=== PATIENT | female | born 1965 | race Caucasian/White ===

== ENCOUNTER 2017-07-09 13:56 | Emergency (ER) | payer BC ==
--- NOTE | 2017-07-09 14:30 | EDM.PDOC ---
ED HPI GENERAL MEDICAL PROBLEM - General Chief Complaint: Neuro Symptoms/Deficits Stated Complaint: PT SEEMS CONFUSE Time Seen by Provider: 07/09/17 14:00 Source of Information: Reports: Patient History Limitations: Reports: No Limitations - History of Present Illness INITIAL COMMENTS - FREE TEXT/NARRATIVE: HISTORY AND PHYSICAL: Stroke Code was called upon patient arrival, Dr Vail was involved in this case. History of present illness: Patient is a 51-year-old female who presents to the emergency room with complaints of confusion. Patient was brought to the emergency room by her roommate. Over the weekend the patient had flulike symptoms and had not "felt well" and had been taking some [id number] medications. The roommate that is here with her now, states that this morning she was attempting to get dressed and was not making sense as to where she was going. Roommate decided to bring her to the ER. Upon arrival the patient is ambulatory and alert but is disoriented to time. She able to perform tasks and follow commands. Ambulatory without difficulty or deficits. I'll trying to have a conversation with the patient she makes nonsensical statements and does not answer questions appropriately. Denies any recent injury, trauma, or head injuries. Currently she states she has a mild headache but otherwise says "feel off". Review of systems: As per history of present illness and below otherwise all systems reviewed and negative. Past medical history: As per history of present illness and as reviewed below otherwise noncontributory. Surgical history: As per history of present illness and as reviewed below otherwise noncontributory. Social history: No reported history of drug or alcohol abuse. Family history: As per history of present illness and as reviewed below otherwise noncontributory. Physical exam: General: Well-developed and well-nourished 51-year-old female. Nontoxic appearing. Alert but disoriented. See NIH scale. HEENT: Atraumatic, normocephalic, pupils reactive, negative for conjunctival pallor or scleral icterus, mucous membranes moist, throat clear, neck supple, nontender, trachea midline. Lungs: Clear to auscultation, breath sounds equal bilaterally, chest nontender. Heart: S1S2, regular rate and rhythm Abdomen: Soft, nondistended, nontender. Negative for masses or hepatosplenomegaly. Negative for costovertebral tenderness. Pelvis: Stable nontender. Genitourinary: Deferred. Rectal: Deferred. Extremities: Atraumatic, negative for cords or calf pain. Neurovascular unremarkable. Neuro: Awake, alert, oriented. Cranial nerves II through XII unremarkable. Cerebellum unremarkable. Motor and sensory unremarkable throughout. Exam nonfocal. CT results were called to me at 1432: No acute findings. NIH = 3 (1 pt for age, 2 points for language - unable to describe pictures/nonsensical statements). Urine shows slight UTI, will treat with 1gm Rocephin - urine culture added. Dr. Vail did also assess this patient. Patient's NIH remains at a 3. Due to the patient's altered mental status with expressive aphasia will transfer this patient to a higher level of care. Dr Silver from [facility] in [place] has agreed to accept this patient. Will transfer via EMS. 1525 - we were able to get a hold of the who gave us a little more of her health information. Patient does have a history of a seizure disorder and does take Tegretol. Sees a neurologist in [facility]. Although the roommate does not know of her taking any medications. Lab called with a Troponin of 0.68 (EKG was reviewed by myself and Dr Vail with no acute findings). Repeat EKG done with no new changes. Temperature has gone from 98.4 to 100.8F. Will give Acyclovir IV to cover bases for Herpes Encephalitis. Information shared with Dr Silver. Diagnostics: CBC, CMP, troponin, EKG, 1 view chest x-ray, PT/INR, head CT, lactic acid, blood culture x2, urine culture Therapeutics: Neuro checks, ASA, Normal Saline Impression: Altered Mental Status UTI Plan: Transfer to [place] via ground EMS per Dr Silver Definitive disposition and diagnosis as appropriate pending reevaluation and review of above. - Related Data Allergies Allergy/AdvReac Type Severity Reaction Status Date / Time erythromycin base Allergy Cannot Verified 07/09/17 15:36 Remember Home Meds: Home Meds carBAMazepine [Tegretol] 0 mg PO BID 07/09/17 [History] Past Medical History - Past Health History Medical/Surgical History: Denies Medical/Surgical History Social & Family History - Tobacco Use Smoking Status *Q: Never Smoker Second Hand Smoke Exposure: No - Caffeine Use Caffeine Use: Reports: None - Recreational Drug Use Recreational Drug Use: No ED ROS GENERAL - Review of Systems Review Of Systems: ROS reveals no pertinent complaints other than HPI. ED EXAM, NEURO - Physical Exam Exam: See Below (See dictation) Course - Vital Signs Last Recorded V/S: Last Vital Signs Temp 98.4 F 07/09/17 14:13 Pulse 104 H 07/09/17 15:41 Resp 18 07/09/17 15:41 BP 107/71 07/09/17 15:41 Pulse Ox 96 07/09/17 15:41 - Orders/Labs/Meds Orders: Active Orders 24 hr Category Date Time Status EKG 12 Lead [EKG Documentation Completion] [RC] STAT Care 07/09/17 14:09 Active EKG Documentation Completion [RC] STAT Care 07/09/17 15:30 Active CULTURE BLOOD [BC] Stat Lab 07/09/17 15:18 Received CULTURE BLOOD [] Stat Lab 07/09/17 15:24 Received CULTURE URINE [] Stat Lab 07/09/17 14:10 Received INFLUENZA A+B AG SCREEN [RM] Stat Lab 07/09/17 14:22 Ordered Sodium Chloride 0.9% [Normal Saline] 500 ml Med 07/09/17 15:00 Active IV STAT Blood Culture x2 Reflex Set [OM.PC] Stat Oth 07/09/17 15:04 Ordered Medication Orders Sodium Chloride (Normal Saline) 500 mls @ 999 mls/hr IV STAT MAKENZIE Last Admin: 07/09/17 15:37 Dose: 999 mls/hr Labs: Laboratory Tests 07/09/17 07/09/17 07/09/17 Range/Units 14:10 14:10 14:10 WBC (4.0-11.0) K/uL RBC (4.30-5.90) M/uL Hgb (12.0-16.0) g/dL Hct (36.0-46.0) % MCV (80.0-98.0) fL MCH (27.0-32.0) pg MCHC (31.0-37.0) g/dL RDW Std Deviation (28.0-62.0) fl RDW Coeff of Donnie (11.0-15.0) % Plt Count (150-400) K/uL MPV (7.40-12.00) fL Neut % (Auto) (48.0-80.0) % Lymph % (Auto) (16.0-40.0) % Burke % (Auto) (0.0-15.0) % Eos % (Auto) (0.0-7.0) % Baso % (Auto) (0.0-1.5) % Neut # (Auto) (1.4-5.7) K/uL Lymph # (Auto) (0.6-2.4) K/uL Burke # (Auto) (0.0-0.8) K/uL Eos # (Auto) (0.0-0.7) K/uL Baso # (Auto) (0.0-0.1) K/uL Nucleated RBC % /100WBC Nucleated RBCs # K/uL INR Lactate (0.20-2.00) mmol/L Sodium (136-146) mmol/L Potassium (3.5-5.1) mmol/L Chloride (98-110) mmol/L Carbon Dioxide (21-31) mmol/L BUN (6.0-23.0) mg/dL Creatinine (0.6-1.5) mg/dL Est Cr Clr Drug Dosing Estimated GFR (MDRD) ml/min Glucose (60-110) mg/dL POC Glucose 109 (60-110) mg/dL Calcium (8.8-10.8) mg/dL Total Bilirubin (0.1-1.5) mg/dL AST (5-40) IU/L ALT (8-54) IU/L Alkaline Phosphatase (40-150) Troponin I (0.0-0.29) NG/ML Total Protein (6.0-8.0) g/dL Albumin (3.5-5.0) g/dL Globulin (2.0-3.5) g/dL Albumin/Globulin Ratio (1.3-2.8) Urine Color YELLOW Urine Appearance CLOUDY Urine pH 6.0 (5.0-8.0) Ur Specific Archer >= 1.030 (1.001-1.035) Urine Protein 30 (NEGATIVE) mg/dL Urine Glucose (UA) NEGATIVE (NEGATIVE) mg/dL Urine Ketones NEGATIVE (NEGATIVE) mg/dL Urine Occult Blood SMALL H (NEGATIVE) Urine Nitrite POSITIVE H (NEGATIVE) Urine Bilirubin SMALL H (NEGATIVE) Urine Ictotest NEGATIVE Urine Urobilinogen 1.0 (<2.0) EU/dL Ur Leukocyte Esterase NEGATIVE (NEGATIVE) Urine RBC 0-1 (0-2/HPF) Urine WBC 0-1 (0-5/HPF) Ur Epithelial Cells FEW (NONE-FEW) Amorphous Sediment HEAVY (NEGATIVE) Urine Bacteria 2+ H (NEGATIVE) Urine Opiates Screen NEGATIVE (NEGATIVE) Ur Oxycodone Screen NEGATIVE (NEGATIVE) Urine Methadone Screen NEGATIVE (NEGATIVE) Ur Barbiturates Screen POSITIVE (NEGATIVE) Ur Phencyclidine Scrn NEGATIVE (NEGATIVE) Ur Amphetamine Screen NEGATIVE (NEGATIVE) U Methamphetamines Scrn NEGATIVE (NEGATIVE) U Benzodiazepines Scrn NEGATIVE (NEGATIVE) U Cocaine Metab Screen NEGATIVE (NEGATIVE) U Marijuana (THC) Screen NEGATIVE (NEGATIVE) 07/09/17 07/09/17 07/09/17 Range/Units 14:33 14:33 14:33 WBC 9.82 (4.0-11.0) K/uL RBC 4.92 (4.30-5.90) M/uL Hgb 16.1 H (12.0-16.0) g/dL Hct 45.7 (36.0-46.0) % MCV 92.9 (80.0-98.0) fL MCH 32.7 H (27.0-32.0) pg MCHC 35.2 (31.0-37.0) g/dL RDW Std Deviation 46.4 (28.0-62.0) fl RDW Coeff of Donnie 14 (11.0-15.0) % Plt Count 82 L (150-400) K/uL MPV 9.50 (7.40-12.00) fL Neut % (Auto) 88.1 H (48.0-80.0) % Lymph % (Auto) 5.3 L (16.0-40.0) % Burke % (Auto) 6.5 (0.0-15.0) % Eos % (Auto) 0.0 (0.0-7.0) % Baso % (Auto) 0.1 (0.0-1.5) % Neut # (Auto) 8.7 H (1.4-5.7) K/uL Lymph # (Auto) 0.5 L (0.6-2.4) K/uL Burke # (Auto) 0.6 (0.0-0.8) K/uL Eos # (Auto) 0.0 (0.0-0.7) K/uL Baso # (Auto) 0.0 (0.0-0.1) K/uL Nucleated RBC % 0.0 /100WBC Nucleated RBCs # 0 K/uL INR 1.07 Lactate (0.20-2.00) mmol/L Sodium 137 (136-146) mmol/L Potassium 3.6 (3.5-5.1) mmol/L Chloride 107 (98-110) mmol/L Carbon Dioxide 21 (21-31) mmol/L BUN 8 (6.0-23.0) mg/dL Creatinine 0.9 (0.6-1.5) mg/dL Est Cr Clr Drug Dosing TNP Estimated GFR (MDRD) > 60.0 ml/min Glucose 124 H (60-110) mg/dL POC Glucose (60-110) mg/dL Calcium 8.8 (8.8-10.8) mg/dL Total Bilirubin 0.4 (0.1-1.5) mg/dL AST 33 (5-40) IU/L ALT 24 (8-54) IU/L Alkaline Phosphatase 88 (40-150) Troponin I (0.0-0.29) NG/ML Total Protein 7.0 (6.0-8.0) g/dL Albumin 4.3 (3.5-5.0) g/dL Globulin 2.7 (2.0-3.5) g/dL Albumin/Globulin Ratio 1.6 (1.3-2.8) Urine Color Urine Appearance Urine pH (5.0-8.0) Ur Specific Archer (1.001-1.035) Urine Protein (NEGATIVE) mg/dL Urine Glucose (UA) (NEGATIVE) mg/dL Urine Ketones (NEGATIVE) mg/dL Urine Occult Blood (NEGATIVE) Urine Nitrite (NEGATIVE) Urine Bilirubin (NEGATIVE) Urine Ictotest Urine Urobilinogen (<2.0) EU/dL Ur Leukocyte Esterase (NEGATIVE) Urine RBC (0-2/HPF) Urine WBC (0-5/HPF) Ur Epithelial Cells (NONE-FEW) Amorphous Sediment (NEGATIVE) Urine Bacteria (NEGATIVE) Urine Opiates Screen (NEGATIVE) Ur Oxycodone Screen (NEGATIVE) Urine Methadone Screen (NEGATIVE) Ur Barbiturates Screen (NEGATIVE) Ur Phencyclidine Scrn (NEGATIVE) Ur Amphetamine Screen (NEGATIVE) U Methamphetamines Scrn (NEGATIVE) U Benzodiazepines Scrn (NEGATIVE) U Cocaine Metab Screen (NEGATIVE) U Marijuana (THC) Screen (NEGATIVE) 07/09/17 07/09/17 Range/Units 14:33 15:18 WBC (4.0-11.0) K/uL RBC (4.30-5.90) M/uL Hgb (12.0-16.0) g/dL Hct (36.0-46.0) % MCV (80.0-98.0) fL MCH (27.0-32.0) pg MCHC (31.0-37.0) g/dL RDW Std Deviation (28.0-62.0) fl RDW Coeff of Donnie (11.0-15.0) % Plt Count (150-400) K/uL MPV (7.40-12.00) fL Neut % (Auto) (48.0-80.0) % Lymph % (Auto) (16.0-40.0) % Burke % (Auto) (0.0-15.0) % Eos % (Auto) (0.0-7.0) % Baso % (Auto) (0.0-1.5) % Neut # (Auto) (1.4-5.7) K/uL Lymph # (Auto) (0.6-2.4) K/uL Burke # (Auto) (0.0-0.8) K/uL Eos # (Auto) (0.0-0.7) K/uL Baso # (Auto) (0.0-0.1) K/uL Nucleated RBC % /100WBC Nucleated RBCs # K/uL INR Lactate 1.2 (0.20-2.00) mmol/L Sodium (136-146) mmol/L Potassium (3.5-5.1) mmol/L Chloride (98-110) mmol/L Carbon Dioxide (21-31) mmol/L BUN (6.0-23.0) mg/dL Creatinine (0.6-1.5) mg/dL Est Cr Clr Drug Dosing Estimated GFR (MDRD) ml/min Glucose (60-110) mg/dL POC Glucose (60-110) mg/dL Calcium (8.8-10.8) mg/dL Total Bilirubin (0.1-1.5) mg/dL AST (5-40) IU/L ALT (8-54) IU/L Alkaline Phosphatase (40-150) Troponin I 0.68 H* (0.0-0.29) NG/ML Total Protein (6.0-8.0) g/dL Albumin (3.5-5.0) g/dL Globulin (2.0-3.5) g/dL Albumin/Globulin Ratio (1.3-2.8) Urine Color Urine Appearance Urine pH (5.0-8.0) Ur Specific Archer (1.001-1.035) Urine Protein (NEGATIVE) mg/dL Urine Glucose (UA) (NEGATIVE) mg/dL Urine Ketones (NEGATIVE) mg/dL Urine Occult Blood (NEGATIVE) Urine Nitrite (NEGATIVE) Urine Bilirubin (NEGATIVE) Urine Ictotest Urine Urobilinogen (<2.0) EU/dL Ur Leukocyte Esterase (NEGATIVE) Urine RBC (0-2/HPF) Urine WBC (0-5/HPF) Ur Epithelial Cells (NONE-FEW) Amorphous Sediment (NEGATIVE) Urine Bacteria (NEGATIVE) Urine Opiates Screen (NEGATIVE) Ur Oxycodone Screen (NEGATIVE) Urine Methadone Screen (NEGATIVE) Ur Barbiturates Screen (NEGATIVE) Ur Phencyclidine Scrn (NEGATIVE) Ur Amphetamine Screen (NEGATIVE) U Methamphetamines Scrn (NEGATIVE) U Benzodiazepines Scrn (NEGATIVE) U Cocaine Metab Screen (NEGATIVE) U Marijuana (THC) Screen (NEGATIVE) Meds: Medications Generic Name Dose Route Start Last Admin Trade Name Freq PRN Reason Stop Dose Admin Sodium Chloride 500 mls @ 999 mls/hr 07/09/17 15:00 07/09/17 15:37 Normal Saline IV 999 mls/hr STAT MAKENZIE Administration Discontinued Medications Generic Name Dose Route Start Last Admin Trade Name Freq PRN Reason Stop Dose Admin Acyclovir 750 mg 07/09/17 15:53 Zovirax IV 07/09/17 15:54 NOW STA Aspirin 324 mg 07/09/17 15:26 07/09/17 15:40 Aspirin PO 07/09/17 15:27 324 mg ONETIME ONE Administration Ceftriaxone Sodium/Dextrose 1 50 mls @ 100 mls/hr 07/09/17 15:12 07/09/17 15: 36 gm/ Premix IV 07/09/17 15:41 100 mls/hr ONETIME ONE Administration Departure - Departure Time of Disposition: 16:03 Disposition: DC/Tfer to Other 70 Clinical Impression: Altered mental status Qualifiers: Altered mental status type: unspecified Qualified Code(s): R41.82 - Altered mental status, unspecified UTI (urinary tract infection) Qualifiers: Urinary tract infection type: site unspecified Hematuria presence: with hematuria Qualified Code(s): N39.0 - Urinary tract infection, site not specified ; R31.9 - Hematuria, unspecified; R31.9 - Hematuria, unspecified - Discharge Information Referrals: PCP,None [Primary Care Provider] - Forms: ED Department Discharge - My Orders Last 24 Hours: My Active Orders 07/09/17 14:09 EKG 12 Lead [EKG Documentation Completion] [RC] STAT 07/09/17 14:10 CULTURE URINE [RM] Stat 07/09/17 14:22 INFLUENZA A+B AG SCREEN [RM] Stat 07/09/17 15:00 Sodium Chloride 0.9% [Normal Saline] 500 ml IV STAT 07/09/17 15:04 Blood Culture x2 Reflex Set [OM.PC] Stat 07/09/17 15:18 CULTURE BLOOD [BC] Stat 07/09/17 15:24 CULTURE BLOOD [BC] Stat 07/09/17 15:30 EKG Documentation Completion [RC] STAT - Assessment/Plan Last 24 Hours: My Active Orders 07/09/17 14:09 EKG 12 Lead [EKG Documentation Completion] [RC] STAT 07/09/17 14:10 CULTURE URINE [RM] Stat 07/09/17 14:22 INFLUENZA A+B AG SCREEN [RM] Stat 07/09/17 15:00 Sodium Chloride 0.9% [Normal Saline] 500 ml IV STAT 07/09/17 15:04 Blood Culture x2 Reflex Set [OM.PC] Stat 07/09/17 15:18 CULTURE BLOOD [BC] Stat 07/09/17 15:24 CULTURE BLOOD [BC] Stat 07/09/17 15:30 EKG Documentation Completion [RC] STAT
--- NOTE | 2017-07-09 14:35 | CT ---
EXAMINATION: Non contrast CT head. Coronal and sagittal reformats. HISTORY: Confusion FINDINGS: No evidence of intra or extra axial hemorrhage, mass, midline shift, hydrocephalus or edema. No hypoattenuation changes in the major vascular territories to suggest acute infarct. No abnormal intracranial calcifications are detected. No evidence of substantial vascular calcificat ions. Mild mucosal thickening noted within the maxillary sinuses and ethmoid air cells. Mastoid air cells a nd middle ears are clear. Orbits and globes are symmetric. Pituitary fossa appears unremarkable. Calvarium is intact. No evidence of skull fracture. IMPRESSION: No acute intracranial findings. Findings were called to the ER at 2:32 PM.
[2017-07-09] MEDS ORDERED: Sodium Chloride 0.9% 500 ML IV SCH (15:00)
[2017-07-09 15:12] LABS: CHLORIDE,CL 107 mmol/L (98-110); SODIUM,NA 137 mmol/L (136-146)
[2017-07-09] MEDS ORDERED: cefTRIAXone 1 GM in Premix Bag 1 BAG IV ONE (15:12)
--- NOTE | 2017-07-09 15:17 | CR ---
EXAMINATION: Portable chest radiograph. HISTORY: Shortness of breath. FINDINGS: The trachea is midline. The cardiomediastinal silhouette is within normal limits. No pulmonary infilt rates, effusions or pneumothorax. Osseous structures appear unremarkable. IMPRESSION: No acute cardiopulmonary process.
[2017-07-09] MEDS ORDERED: Aspirin 81 MG Tab.Chew PO ONE (15:26)
[2017-07-09] MEDS ORDERED: ACYCLOVIR IV ONE (16:30)
[2017-07-09] MEDS ORDERED: SODIUM CHLORIDE 0.9% IV ONE (16:30)
[2017-07-09] MEDS: Acyclovir 500 MG/10 ML SDV IV STA ×2 (16:30→16:51)
== END 2017-07-09 16:45 | disposition other institution (70) ==
LOC: MW.ED 13:56
DX: R41.82 Altered mental status, unspecified (principal); N39.0 Urinary tract infection, site not specified; R31.9 Hematuria, unspecified; G40.909 Epilepsy, unspecified, not intractable, without status epilepticus; Z88.1 Allergy status to other antibiotic agents
CPT/HCPCS: 36415; 70450; 71045; 80053; 80305; 81001; 82962; 83605; 84484; 85025; 85610; 87040; 87086; 87804; 93005; 96365; 96375; 99285; A9270; J0133; J0696; J7040

== ENCOUNTER 2021-12-01 18:10 | Observation (INO) | payer BC ==
[~2021-12-01 18:10] MED LIST: Sodium Chloride 0.9% 1,000 ML IV ONE
[2021-12-01] MEDS ORDERED: LORazepam 2 MG/ML SDV IVPUSH ONE ×2 (18:11→18:12)
[2021-12-01] MEDS ORDERED: LORazepam 2 MG/ML SDV ONE (18:13)
[2021-12-01 19:05] LABS: BLOOD UREA NITROGEN,BUN 14 mg/dL (7.0-18.0); CARBON DIOXIDE,CO2 18.5 mmol/L (21.0-32.0); CHLORIDE,CL 104 mmol/L (98-107); ESTIMATED GFR 66 mL/min (>60); GLUCOSE RANDOM 140 mg/dL (74-106); POTASSIUM,K 3.8 mmol/L (3.5-5.1); SODIUM,NA 138 mmol/L (136-145)
[2021-12-01] MEDS ORDERED: Albuterol/Ipratropium 3.0-0.5 MG/3 ML Neb Soln NEB PRN (21:56)
[2021-12-01] MEDS ORDERED: Acetaminophen 325 MG Tab PO PRN (21:56)
[2021-12-01] MEDS ORDERED: Lactated Ringers 1,000 ML IV ONE (21:56)
[2021-12-01] MEDS ORDERED: Ondansetron 4 MG/2 ML SDV IVPUSH PRN (21:56)
[2021-12-01] MEDS ORDERED: Pantoprazole 40 MG in Sodium Chloride 0.9% 10 ML IVPUSH SCH (22:00)
[2021-12-01] MEDS ORDERED: Lactated Ringers 1,000 ML IV SCH (22:00)
[2021-12-01] MEDS ORDERED: LORazepam 2 MG/ML Syringe IVPUSH PRN (22:05)
[2021-12-02] MEDS ORDERED: Topiramate 100 MG Tab PO SCH (09:00)
[2021-12-02] MEDS ORDERED: Phenytoin 100 MG Cap.ER PO SCH (09:00)
[2021-12-02] MEDS ORDERED: Nitrofurantoin Monohydrate/Macrocrystalline 100 MG Cap PO SCH (10:45)
== END 2021-12-02 16:30 | disposition home or self-care (01) ==
LOC: MW.ED 18:10 → MW.MS 21:14
PROVIDERS: ADMIT Student in an Organized Health Care Education/Training Program; ATTEND Student in an Organized Health Care Education/Training Program
DX: R56.9 Unspecified convulsions (principal); R41.82 Altered mental status, unspecified; Z88.8 Allergy status to other drugs, medicaments and biological substances; Z79.899 Other long term (current) drug therapy; Z20.822 Contact with and (suspected) exposure to COVID-19
CPT/HCPCS: 36415; 70450; 70496; 70498; 71045; 80053; 80185; 80201; 80305; 80307; 81001; 83605; 83735; 84443; 84484; 85025; 85610; 85730; 87086; 87088; 87186; 87635; 93005; 96361; 96374; 96375; 99285; A9270; C9113; G0378; J1953; J2060; J3490; J7030; J7120; 93010; U0002

== ENCOUNTER 2023-07-09 08:01 | Emergency (ER) | payer BC ==
[2023-07-09] MEDS: Sodium Chloride 0.9% 10 ML Syringe FLUSH PRN (08:09)
[2023-07-09] MEDS: Sodium Chloride 0.9% 2.5 ML Syringe FLUSH PRN (08:09)
[2023-07-09 08:10] LABS: BASOPHILS ABSOLUTE AUTO 0.02 K/uL (0.00-0.20); BASOPHILS PERCENT AUTO 0.4 % (0.0-1.0); EOSINOPHILS ABSOLUTE AUTO 0.14 K/uL (0.00-0.45); EOSINOPHILS PERCENT AUTO 2.6 % (0.0-6.0); HEMATOCRIT 45.3 % (37.0-47.0); HEMOGLOBIN 16.1 g/dL (12.0-16.0); IMMATURE GRAN ABSOLUTE AUTO 0.02 K/uL (0.00-0.05); IMMATURE GRAN PERCENT AUTO 0.4 % (0.0-0.4); LYMPHOCYTES ABSOLUTE AUTO 1.22 K/uL (1.00-4.80); LYMPHOCYTES PERCENT AUTO 22.2 % (24.0-44.0); MEAN CORPUSCULAR HGB CONC 35.5 g/dL (32.0-36.0); MEAN CORPUSCULAR VOLUME 95.8 fL (83.0-99.0); MEAN PLATELET VOLUME 8.9 fL (9.4-12.3); MONOCYTES ABSOLUTE AUTO 0.24 K/uL (0.00-0.80); MONOCYTES PERCENT AUTO 4.4 % (0.0-8.0); NEUTROPHILS ABSOLUTE AUTO 3.85 K/uL (1.80-7.70); PLATELET COUNT,PLT 122 K/uL (150-400); RED BLOOD CELL COUNT 4.73 M/uL (4.10-5.30); WHITE BLOOD CELL COUNT,WBC 5.49 K/uL (3.9-11.3)
[2023-07-09 08:32] LABS: INR 1.1 (0.86-1.11); PTT,PARTIAL THROMBOPLSTIN TIME 24.8 SEC (23.9-30.7)
[2023-07-09 08:38] LABS: A/G RATIO 1.3 (0.9-1.6); BILIRUBIN TOTAL 0.4 mg/dL (0.2-1.0); CALCIUM 8.8 mg/dL (8.5-10.1); CREATININE 0.9 mg/dL (0.6-1.0); EST CRCL DRUG DOSING (CG) 62.06 mL/min; POTASSIUM,K 3.7 mmol/L (3.5-5.1); PROTEIN TOTAL,TP 7.1 g/dL (6.4-8.2)
[2023-07-09] MEDS: Iopamidol 755 MG/ML 500 ML Multipack Bottle IVPUSH STA (09:51)
[2023-07-09] MEDS: Aspirin 81 MG Tab.Chew PO ONE (09:55)
== END 2023-07-09 10:00 | disposition home or self-care (01) ==
LOC: MW.ED 08:01
DX: R47.01 Aphasia (principal); Z88.1 Allergy status to other antibiotic agents; Z79.82 Long term (current) use of aspirin
CPT/HCPCS: 36415; 70450; 70496; 70498; 71045; 80053; 84484; 85025; 85610; 85730; 93005; 99285; A9270; J3490; Q9967; 93010; 99284